=== PATIENT | female | born 1965 | race Caucasian/White ===

== ENCOUNTER → 2017-08-30 | Outpatient (CLI) | payer BC ==
--- NOTE | 2017-09-01 11:58 | MM ---
Reason for exam: screening (asymptomatic). Last mammogram was performed 1 year and 11 months ago. History: Patient is postmenopausal. Family history of breast cancer in grandmother at age 80. Physical Findings: A clinical breast exam by your physician is recommended on an annual basis and results should be correlated with mammographic findings. MG Screening Mammo w CAD Bilateral CC and MLO view(s) were taken. Prior study comparison: September 29, 2015, bilateral MG screening mammo w CAD. July 13, 2013, bilateral digital screening mammo w/CAD. The breast tissue is heterogeneously dense. This may lower the sensitivity of mammography. Far posterior, central calcifications in the left breast are unchanged from 2013. No significant changes when compared with prior studies. ASSESSMENT: Benign, BI-RAD 2 RECOMMENDATION: Routine screening mammogram of both breasts in 1 year.
== END | disposition home or self-care (01) ==
LOC: RADMAMWWP 07:07
PROVIDERS: ATTEND Family Medicine
DX: Z12.31 Encounter for screening mammogram for malignant neoplasm of breast (principal)
CPT/HCPCS: 77067

== ENCOUNTER → 2019-08-15 | Outpatient (CLI) | payer OTHER ==
--- NOTE | 2019-08-16 10:13 | MM ---
Reason for exam: screening (asymptomatic). Last mammogram was performed 2 years ago. History: Patient is postmenopausal. Family history of breast cancer in grandmother at age 80. Physical Findings: A clinical breast exam by your physician is recommended on an annual basis and results should be correlated with mammographic findings. MG Screening Mammo w CAD Bilateral CC and MLO view(s) were taken. Prior study comparison: August 30, 2017, bilateral MG screening mammo w CAD. September 29, 2015, bilateral MG screening mammo w CAD. The breast tissue is heterogeneously dense. This may lower the sensitivity of mammography. There are similar appearing left upper outer quadrant posterior depth calcifications back to 2016. No suspicious abnormality. No significant changes when compared with prior studies. ASSESSMENT: Benign, BI-RAD 2 RECOMMENDATION: Routine screening mammogram of both breasts in 1 year.
== END | disposition home or self-care (01) ==
LOC: RADMAMWWP 07:21
PROVIDERS: ATTEND Family Medicine
DX: Z12.31 Encounter for screening mammogram for malignant neoplasm of breast (principal)
CPT/HCPCS: 77067

== ENCOUNTER → 2020-08-14 | Outpatient (CLI) | payer OTHER ==
--- NOTE | 2020-08-14 15:52 | CONS ---
CONSULTATION DATE OF SERVICE: 08/14/2020 This is a 54-year-old lady who has been evaluated in the sleep center for possible obstructive sleep apnea-hypopnea syndrome. HISTORY OF PRESENT ILLNESS/SLEEP-WAKE EVALUATION: The patient's usual sleep schedule is from 10 p.m. to 6 a.m. on weekdays and on weekends from midnight until 9 or 10 a.m. No problems with falling asleep, although she has a TV in the bedroom. She sleeps on the side position. She snores and wakes up once at night with nocturia. In the morning she wakes up tired. Usually she does not take naps. Turner Sleepiness Scale is 4. Her snoring has become worse over the last several months. PAST MEDICAL HISTORY: Positive for hypothyroidism, menopause presently. History of neck trauma and neck pain. MEDICATIONS: Levothyroxine once a day. PAST SURGICAL HISTORY: None. FAMILY HISTORY: Positive for stroke in her father. REVIEW OF SYSTEMS: Worsening of snoring recently. SOCIAL HISTORY: Negative for smoking or using alcohol. PHYSICAL EXAMINATION: GENERAL: A pleasant lady without distress. VITAL SIGNS: BP 143/88, HR 67, RR 12, height 5 feet 4 inches, weight 159.8, body mass index 27.2, temperature 98.1 oxygen saturation at room air 97%. HEENT: PERRLA, EOMI. Evaluation of oropharynx showed tongue protrudes midline. Moderately low position of soft palate. NECK: Supple. No JVD. Thyroid is not palpable. Neck measures 13-1/2 inches in circumference. LUNGS: Clear to percussion and to auscultation. Good air exchange. No wheezing or rhonchi. HEART: S1, S2 regular. No murmurs, gallops or rubs. ABDOMEN: Soft and nontender. Bowel sounds are present. No organomegaly appreciated. EXTREMITIES: No clubbing or cyanosis. COFFEE WEIGHER: Awake, alert, and oriented X3. Cranial nerves 2 to 7 intact. There is no fasciculation or atrophy. noted. No focal deficits observed. IMPRESSION: 1. Snoring, awakenings from sleep with nocturia, snoring increased recently. The patient feels tired after awakening in the morning. Moderately low position of soft palate; possible obstructive sleep apnea-hypopnea syndrome. 2. Menopause. 3. Hypothyroidism. 4. History of neck trauma with neck pain. PLAN: 1. Home sleep apnea test for checking patient's breathing during sleep. 2. Following plan after reviewing results of sleep study. 3. Sleep hygiene with regular time in bed for at least 7-1/2 to 8 hours. 4. No driving if feeling any sleepiness. 5. Preferable position during sleep is on the side. Thank you very much for referring this patient for consultation. Sincerely, Jerrell Guzmán MD, PhD, FAASM Diplomat of [place] [place] [employer]ighting [employer] Specialist of [facility] [place] MMODL / IJN: [id number] /
== END | disposition home or self-care (01) ==
LOC: SLEEP 14:07
PROVIDERS: ATTEND Internal Medicine
DX: R06.83 Snoring (principal); E03.9 Hypothyroidism, unspecified; Z78.0 Asymptomatic menopausal state; Z87.828 Personal history of other (healed) physical injury and trauma; Z87.39 Personal history of other diseases of the musculoskeletal system and connective tissue; Z99.89 Dependence on other enabling machines and devices; Z79.890 Hormone replacement therapy
CPT/HCPCS: 99211

== ENCOUNTER → 2021-03-26 | Outpatient (CLI) | payer OTHER ==
--- NOTE | 2021-03-30 09:45 | MM ---
Reason for exam: screening (asymptomatic). Last mammogram was performed 1 year and 7 months ago. History: Patient is postmenopausal. Family history of breast cancer in grandmother at age 80. Physical Findings: A clinical breast exam by your physician is recommended on an annual basis and results should be correlated with mammographic findings. MG Screening Mammo w CAD Bilateral CC and MLO view(s) were taken. Prior study comparison: August 15, 2019, bilateral MG screening mammo w CAD. August 30, 2017, bilateral MG screening mammo w CAD. The breast tissue is heterogeneously dense. This may lower the sensitivity of mammography. Posterior outer central grouped and regional calcifications are redemonstrated but appear to be increasing. ASSESSMENT: Incomplete: need additional imaging evaluation, BI-RAD 0 RECOMMENDATION: Special view mammogram of the left breast. (magnification) [facility] will attempt to contact patient to return for supplemental views.
== END | disposition home or self-care (01) ==
LOC: RADMAMWWP 07:37
PROVIDERS: ATTEND Family Medicine
DX: Z12.31 Encounter for screening mammogram for malignant neoplasm of breast (principal); Z78.0 Asymptomatic menopausal state; Z80.3 Family history of malignant neoplasm of breast
CPT/HCPCS: 77067

== ENCOUNTER → 2021-03-31 | Outpatient (CLI) | payer OTHER ==
--- NOTE | 2021-03-31 08:54 | MM ---
Reason for exam: additional evaluation requested from abnormal screening. Last mammogram was performed less than 1 month ago. History: Patient is postmenopausal. Family history of breast cancer in grandmother at age 80. Physical Findings: Nurse did not find any significant physical abnormalities on exam. MG Work Up Mamm w CAD LT CC with magnification, ML with magnification, and LM view(s) were taken of the left breast. Prior study comparison: March 26, 2021, bilateral MG screening mammo w CAD. August 15, 2019, bilateral MG screening mammo w CAD. August 30, 2017, bilateral MG screening mammo w CAD. The breast tissue is heterogeneously dense. This may lower the sensitivity of mammography. Grouped amorphous calcifications posterior lower outer quadrant have increased. Spanning 3.0cm top to bottom on the lateral view. These results were verbally communicated with the patient and result sheet given to the patient on 03/31/21. ASSESSMENT: Suspicious, BI-RAD 4 RECOMMENDATION: Stereotactic core biopsy of the left breast. Called Dr. Gonzalez's office with mammographic findings and has scheduled an appointment for the patient for 04/17/21 at 7:[address] Reyna. Biopsy scheduled for 04/17/21 at 8:00. PRELIMINARY REPORT CALLED AND FAXED TO DR. REYNA ON 03/31/21.
== END | disposition home or self-care (01) ==
LOC: RADMAMWWP 07:27
PROVIDERS: ATTEND Family Medicine
DX: R92.1 Mammographic calcification found on diagnostic imaging of breast (principal); Z78.0 Asymptomatic menopausal state; Z80.3 Family history of malignant neoplasm of breast
CPT/HCPCS: 77065

== ENCOUNTER → 2021-05-08 | Outpatient (CLI) | payer OTHER ==
[2021-05-08 09:24] VITALS: BP 129/80; PULSE 65; RESP 16; TEMP 97.6
--- NOTE | 2021-05-08 09:43 | P.GSHP ---
History of Present Illness H&P Date: 05/08/21 Chief Complaint: abnormal left breast mammogram Lynne is a 55 year old white female seen in consultation for DR. Gonzalez regarding a mammographic abnormality of her Left breast. She had a bilateral screening mammogram in . This revealed grouped in regional calcifications which were increasing in the posterior outer quadrant of the breast[place] [id number] of the left breast. This revealed grouped amorphous calcifications posterior lower outer quadrant which had increased spanning 3 cm from top to bottom on the lateral view. She does not feel any lumps masses or nodules of concern in either breast. She is not complaining of any nipple discharge. She has not had any recent trauma or infection in the breast. She has never had any surgery on either breast. Caffeine: 2 cups coffee/week nicotine; none chocolate: weekly hormones: none BCP: none Family history: maternal grandmother: breast cancer twice in 60's and 80's Hormonal History: menarche; 10 , breast fed: no age at : 28 menopause: 49 hormones: none Surgical history: none Medical History: hypothyroid Social History: nicotine: none alcohol: occasional drugs: none - Constitutional Constitutional: Reports sweats, Denies chills, Denies fever - EENT Eyes: denies blurred vision, denies pain Ears: deny: decreased hearing, tinnitus Ears, nose, mouth and throat: Denies headache, Denies sore throat - Breasts Breasts: bilateral: as per HPI - Cardiovascular Cardiovascular: Denies chest pain, Denies shortness of breath - Respiratory Respiratory: Denies cough, Denies 7 - Gastrointestinal Gastrointestinal: Denies abdominal pain, Denies diarrhea, Denies nausea, Denies vomiting - Genitourinary (Female) Genitourinary: Denies dysuria, Denies hematuria - Menstruation Menstruation: Reports postmenopausal - Musculoskeletal Musculoskeletal: Denies myalgias - Integumentary Integumentary: Denies pruritus, Denies rash - Neurological Neurological: Denies numbness, Denies weakness - Psychiatric Psychiatric: Denies anxiety, Denies depression - Endocrine Comment: hypothyroid Endocrine: Denies fatigue, Denies weight change - Hematologic/Lymphatic Comment: none - Allergic/Immunologic Allergic/Immunologic: Reports as per HPI Past Medical History Past Medical History: Thyroid Disorder Additional Past Medical History / Comment(s): hypothyroid History of Any Multi-Drug Resistant Organisms: None Reported Past Anesthesia/Blood Transfusion Reactions: No Reported Reaction Past Psychological History: No Psychological Hx Reported Smoking Status: Never smoker Past Alcohol Use History: None Reported Medications and Allergies Home Medications Medication Instructions Recorded Confirmed Type Levothyroxine Sodium [Synthroid] 25 mcg PO DAILY 04/07/21 05/08/21 History Allergies Allergy/AdvReac Type Severity Reaction Status Date / Time No Known Allergies Allergy Verified 05/08/21 09:20 Surgical - Exam Vital Signs Temp Pulse Resp BP Pulse Ox 97.6 F 65 16 129/80 98 05/08/21 09:21 05/08/21 09:21 05/08/21 09:21 05/08/21 09:21 05/08/21 09:21 BMI 30.9 - General no distress - Eyes normal ocular movement - ENT normal nares - Neck no masses, trachea midline - Respiratory normal respiratory effort, clear to auscultation - Cardiovascular Rhythm: regular Heart Sounds: normal: S1, S2 - Abdomen Abdomen: soft - Integumentary normal turgor - Neurologic no disoriented, no combative - Musculoskeletal normal gait - Psychiatric oriented to time, oriented to person, oriented to place, speech is normal, memory intact Breast Exam: Bra: 34B inspection: Bilateral grade 2 ptosis Palpation: Right breast: Multi-positional exam fibrocystic changes, dense breast, no dominant masses or nodules of concern Right axilla: No adenopathy of concern Left breast: Multi-positional exam fibrocystic changes, dense breast, slightly denser tissue relative to the right breast in the outer central portion Left axilla: No adenopathy of concern Results Mammogram results reviewed with Dr. Fountain/microcalcifications of concern left breast posterior outer central area Assessment and Plan Assessment: Impression: 1. Mammographic abnormality left breast 2. Dense fibrocystic breast disease slightly denser on the left than the right lateral aspect 3. Family history of breast cancer 4. Hypothyroidism Plan: 1. Stereotactic core biopsy area of concern left breast 2. Follow-up after stereotactic core biopsy Risks and benefits of stereotactic core biopsy discussed with the patient. Risks include but are not limited to bleeding, infection, reaction to the anesthetic. The area of concern spans approximately 3 cm. The patient understands that if the findings were to be discordant it may warrant interventional biopsy. Additionally if anything of concern was noted on the biopsy surgery would be recommended. Alternatives such as watchful waiting with open biopsy initially were discussed but not recommended. CC: Dr. Gonzalez
== END ==
LOC: WWCWWP 09:00
PROVIDERS: ATTEND Surgery
DX: N60.12 Diffuse cystic mastopathy of left breast (principal); R92.8 Other abnormal and inconclusive findings on diagnostic imaging of breast; E03.9 Hypothyroidism, unspecified; Z80.3 Family history of malignant neoplasm of breast; Z79.899 Other long term (current) drug therapy

== ENCOUNTER → 2021-05-21 | Day surgery (SDC) | payer OTHER ==
[2021-05-21 07:18] VITALS: RESP 16; TEMP 98
[2021-05-21 08:33] VITALS: BP 127/77; PULSE 60
--- NOTE | 2021-05-21 08:40 | P.PCN ---
Date of Procedure: 05/21/21 Preoperative Diagnosis: Abnormal left breast mammogram Postoperative Diagnosis: Same Procedure(s) Performed: Stereotactic core biopsy left breast Anesthesia: local Surgeon: Teagan Reyna Pathology: other (Breast tissue with microcalcifications of concern included) Condition: stable Disposition: same day Indications for Procedure: Microcalcifications of concern left breast Operative Findings: Breast tissue with microcalcifications of concern noted in specimen Description of Procedure: Lynne is a 55-year-old white female who was noted to have microcalcifications of concern on the left breast mammogram. The patient was recommended to undergo a stereotactic core biopsy. Risks and benefits of the procedure were discussed with the patient. She understood and wished to proceed. Alternatives such as watchful waiting (biopsy were discussed but not recommended. The patient was taken to the stereotactic core biopsy room. A CC from below approach was utilized. A pipe straightener film was obtained. The area of concern was identified. The lesion was targeted. The breast was prepped using Betadine. 20 mL of 1% lidocaine were used to anesthetize the area of concern. A 9-gauge vacuum-assisted core rotating biopsy needle was driven to the correct coordinates. The needle was fired. A postoperative film was obtained. The needle was noted to be in the correct location. 11 specimens were obtained. The area was well irrigated. Hemostasis was attained. The specimen was radiographed and calcifications of concern were identified. A secure vitaly Top- dress marker was placed. The marker was noted to be in the correct location. The patient tolerated the procedure without difficulty. The specimen was felt to be marketing development representative of the area of concern.
--- NOTE | 2021-05-21 08:55 | MM ---
Description of Procedure: Lynne is a 55-year-old white female who was noted to have microcalcifications of concern on the left breast mammogram. The patient was recommended to undergo a stereotactic core biopsy. Risks and benefits of the procedure were discussed with the patient. She understood and wished to proceed. Alternatives such as watchful waiting (biopsy were discussed but not recommended. The patient was taken to the stereotactic core biopsy room. A CC from below approach was utilized. A ski maker wood film was obtained. The area of concern was identified. The lesion was targeted. The breast was prepped using Betadine. 20 mL of 1% lidocaine were used to anesthetize the area of concern. A 9-gauge vacuum-assisted core rotating biopsy needle was driven to the correct coordinates. The needle was fired. A postoperative film was obtained. The needle was noted to be in the correct location. 11 specimens were obtained. The area was well irrigated. Hemostasis was attained. The specimen was radiographed and calcifications of concern were identified. A secure vitaly Top- x ray developer was placed. The marker was noted to be in the correct location. The patient tolerated the procedure without difficulty. The specimen was felt to be medical sales representative of the area of concern. [facility]
== END ==
LOC: RADMAMWWP 07:09
PROVIDERS: ATTEND Surgery
DX: R92.8 Other abnormal and inconclusive findings on diagnostic imaging of breast (principal); N62 Hypertrophy of breast; N60.82 Other benign mammary dysplasias of left breast
CPT/HCPCS: 88305; 88342; 19081; A4648; J2001

== ENCOUNTER → 2021-05-28 | Outpatient (CLI) | payer OTHER ==
[2021-05-28 09:15] VITALS: BP 127/84; PULSE 83; RESP 16; TEMP 98
--- NOTE | 2021-05-28 09:30 | P.PN ---
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 Pathology revealed atypical duct hyperplasia/flat epithelial atypia with focal atypical apocrine metaplasia. The patient has a positive family history with a maternal grandmother having had breast cancer. We have discussed surgical options such as needle localization of the borders of the area as it spans approximately 3 cm and excision. The patient's bra size is 34B. I have discussed with her that she will have some change in the size of her breast secondary to the size of the area which requires excision. We discussed the possibility of a simple mastectomy with reconstruction and at this time we are going to avoid that. Objective - Vital Signs Vital signs: Vital Signs Temp 98.0 F 05/28/21 09:07 Pulse 83 05/28/21 09:07 Resp 16 05/28/21 09:07 BP 127/84 05/28/21 09:07 Pulse Ox 100 05/28/21 09:07 Intake & Output 05/27/21 05/28/21 05/28/21 18:59 06:59 18:59 Weight 72.575 kg - Constitutional General appearance: Present: cooperative - EENT Eyes: Present: EOMI ENT: Present: hearing grossly normal - Neck Neck: Present: normal ROM - Respiratory Respiratory: bilateral: CTA - Cardiovascular Rhythm: regular Heart sounds: normal: S1, S2 - Integumentary Integumentary: Present: normal turgor - Musculoskeletal Musculoskeletal: Present: gait normal - Psychiatric Psychiatric: Present: A&O x's 3, appropriate affect, intact judgment & insight - Additional findings Additional findings: Breast examination: Bra: 36B Inspection: Biopsy site left breast clean and dry Palpation: Right breast colon from prior exam multiple positional exam no dominant masses or nodules of concern. Axilla: No adenopathy of concern Left breast colon from prior exam multiple positional exam slightly denser tissue relative to the right breast in the outer central portion Left axilla: No adenopathy of concern Assessment and Plan Assessment: Impression: 1. Atypical ductal hyperplasia/flat epithelial atypia left breast are detected core biopsy 2. Abnormal left breast mammogram Plan: 1. Needle localization with 2 needles bracketing the area of concern and lumpectomy in the operating room 2. Onco-plastic tissue transfer 3. Possible donut mastopexy incision Risks and benefits of the procedure been discussed with the patient. Risks include but are not limited to bleeding, infection, reaction to the anesthetic. She understands if the margins were to be positive for precancer or cancer is possible we would have to go back and take more tissue. CC: Dr. Inez Gonzalez
== END ==
LOC: WWCWWP 08:57
PROVIDERS: ATTEND Surgery
DX: N60.92 Unspecified benign mammary dysplasia of left breast (principal)

== ENCOUNTER 2021-06-23 07:41 | Day surgery (SDC) | payer OTHER ==
[2021-06-18 15:47] VITALS: BMI 29.2
[~2021-06-23 07:41] MED LIST: ALPRAZolam 0.5 MG TAB PO PRN; DEXAMETHASONE SOD PHOSPHATE 4 MG/ML 1 ML VIAL IV ONE; HEPARIN SODIUM,PORCINE/PF 5,000 UNIT/0.5 ML SYRINGE SQ PRN; HYDROmorphone 0.5 MG/0.5 ML SYRINGE IVP PRN; LACTATED RINGERS 1,000 ML IV SCH; ONDANSETRON 4 MG/2 ML VIAL IVP ONE; Pre Op ABX Message 1 EACH MISC MISCELLANE ONE
[2021-06-23] MEDS ORDERED: LIDOCAINE 1% (10MG/ML) FOR IV START INTRADERMA ONE (08:41)
[2021-06-23] MEDS ORDERED: LIDOCAINE 1% INJ 10MG/ML (20 ML MDV) SQ ONE (10:00)
[2021-06-23] MEDS ORDERED: LIDOCAINE 1%-EPI 1:100,000 20 ML VIAL SQ ONE (10:00)
[2021-06-23] MEDS ORDERED: PROPOFOL 10 MG/ML 20 ML VIAL IV ONE (13:18)
[2021-06-23] MEDS ORDERED: PHENYLEPHRINE-0.9% NACL SYG 1,000 MCG/10 ML SYRINGE ONE (13:18)
[2021-06-23] MEDS ORDERED: MIDAZOLAM 2 MG/2 ML VIAL ONE (13:18)
[2021-06-23] MEDS ORDERED: .fentaNYL (PF) 50 MCG/ML 2 ML AMP ONE (13:18)
[2021-06-23] MEDS ORDERED: SUCCINYLCHOLINE CHLORIDE 100 MG/5 ML SYR IV ONE (13:18)
[2021-06-23] MEDS ORDERED: GLYCOPYRROLATE 0.2 MG/ML 2 ML VIAL ONE (13:18)
[2021-06-23] MEDS ORDERED: LIDOCAINE 1% INJ 10MG/ML (20 ML MDV) ONE (13:18)
[2021-06-23] MEDS ORDERED: ePHEDrine 50 MG/ML 1 ML AMP ONE (13:18)
[2021-06-23] MEDS ORDERED: LIDOCAINE 0.5% (PF) 5 MG/ML (50 ML SDV) SQ ONE ×2 (13:46→14:20)
[2021-06-23] MEDS ORDERED: LACTATED RINGERS 1,000 ML IV ONE (14:21)
--- NOTE | 2021-06-23 14:27 | P.OP ---
Date of Procedure: 06/23/21 Preoperative Diagnosis: Left breast atypical ductal hyperplasia on core biopsy Postoperative Diagnosis: Same Procedure(s) Performed: needle localization excisional lumpectomy, oncoplastic tissue transfer 20 cm Anesthesia: CHRISTAL Surgeon: Teagan Reyna Estimated Blood Loss (ml): 8 IV fluids (ml): 700 Pathology: other (breast tissue) Condition: stable Disposition: same day Indications for Procedure: Atypical ductal hyperplasia on stereotactic core biopsy of the left breast Operative Findings: Dense breast tissue Description of Procedure: The patient is a 55-year-old white female who was noted on stereotactic core biopsy to have atypical ductal hyperplasia. She was recommended to undergo needle localization and excisional lumpectomy. Following needle localization of the area of concern she was brought to the operative suite. Following induction of anesthesia the left breast was prepped and draped in a sterile fashion. An incision was made and carried down to the needle. Surrounding tissue was excised. The excision was carried down to the pectoralis muscle. The specimen was removed and painted for orientation. X-ray of the specimen revealed the area of concern had been removed. After we were assured that hemostasis was attained titanium clips were placed. The superior and inferior pillars were mobilized. Superior pillar was 5 x 2 cm for 10 cm, inferior pillar was 5 x 2 cm for 10 cm. A total of 20 cm were mobilized. The deep tissues were brought together using 3-0 Vicryl suture. Subcutaneous tissue was closed using a 3-0 Vicryl suture. The skin was closed using 4-0 Monocryl. Steri-Strips were applied. The patient tolerated the procedure in stable condition. All instrument and sponge counts were correct at the end of the case.
--- NOTE | 2021-06-23 14:29 | P.DS ---
Providers Attending physician: Teagan Reyna Primary care physician: Dangelo Gonzalez Plan - Discharge Summary Discharge Rx Participant: No New Discharge Prescriptions: No Action Levothyroxine Sodium [Synthroid] 25 mcg PO DAILY Discharge Medication List Levothyroxine Sodium [Synthroid] 25 mcg PO DAILY 04/07/21 [History] Follow up Appointment(s)/Referral(s): Teagan Reyna MD [STAFF PHYSICIAN] - 07/02/21 12:00 pm Activity/Diet/Wound Care/Special Instructions: do not drive for 24 hours after discharge or if taking narcotic pain medicine may shower afer 48 hours wear bra at all times Discharge Disposition: HOME SELF-CARE
[2021-06-23 14:51] VITALS: TEMP 97.3
[2021-06-23] MEDS ORDERED: KETOROLAC 15 MG/ML 1 ML VIAL IVP ONE (14:51)
[2021-06-23] MEDS ORDERED: KETOROLAC 30 MG/ML 1 ML VIAL ONE (14:53)
--- NOTE | 2021-06-23 15:03 | MM ---
EXAMINATION TYPE: MG pre op needle loc LT, MG surgical specimen LT DATE OF EXAM: 06/23/2021 COMPARISON: Prior mammogram May 21, 2021 and older studies. CLINICAL HISTORY: Abnormal stereotactic guided core biopsy. ADH/FEA on recent stereotactic biopsy TECHNIQUE: Needle localization with wire placement and surgical excision of area of concern in the left breast. FINDINGS: The procedure of needle localization with wire placement and than surgical excision was explained to the patient. Benefits, alternatives, and risks were discussed. An informed consent was then obtained. The shortest pathway for procedure was chosen. Shortest pathway was lateral approach. The overlying skin was prepped and draped in usual sterile fashion. Lidocaine is used as anesthetic into the skin and subcutaneous tissue. Lidocaine with epinephrine is used if anesthetic into the deeper tissue up to the level of area of concern. A 7 cm needle was used. It was placed via a lateral approach under mammographic guidance. Subsequent 90 degrees mammogram show the needle to be in satisfactory position relative to the targeted area. At this point, wire was placed and the needle was withdrawn. The wire was fixed to patient's skin. Images were marked for surgeon. The patient tolerated the procedure well without any immediate complication. The patient was kept in the radiology department for short stay after the procedure and then taken to surgery for surgical excision. Targeted biopsy clip and wire are identified in specimen mammogram. The patient was kept in hospital for short stay after the procedure and then discharged home in stable condition. IMPRESSION: Successful, uncomplicated needle localization with wire placement and surgical excision of targeted biopsy clip and residual calcifications in the left breast, full pathology results to follow. Pathology Results: Benign LEFT BREAST, LUMPECTOMY: Fibrocystic change with apocrine metaplasia, columnar cell change, focal usual ductal hyperplasia, fibrotic and inflamed biopsy site change and scattered areas of microcalcification (see note). Current specimen negative for diagnostic in situ or invasive carcinoma. Recommendation Follow up mammogram of the left breast in 6 months. [facility]
[2021-06-23 15:17] VITALS: RESP 18
[2021-06-23 16:17] VITALS: BP 121/81; PULSE 91
== END 2021-06-23 16:31 | disposition home or self-care (01) ==
LOC: OR 07:41
PROVIDERS: ATTEND Surgery
DX: N60.12 Diffuse cystic mastopathy of left breast (principal); N62 Hypertrophy of breast; Z80.3 Family history of malignant neoplasm of breast; Z79.899 Other long term (current) drug therapy
CPT/HCPCS: 19301; 14001; 88307; 76098; 19281; C1819; J2250; J1100; J2405; J2001 ×2; J3010; J1885; J2370; J0330; J2704; J1644

== ENCOUNTER → 2021-07-02 | Outpatient (CLI) | payer OTHER ==
[2021-07-02 12:08] VITALS: BP 177/85; PULSE 77; RESP 16; TEMP 98.1
--- NOTE | 2021-07-02 12:19 | P.PN ---
Progress Note - Text Progress Note Date: 07/02/21 Lynne is a 55 year old white female status post needle localization and left breast biopsy on 06-23-21. Pathology was benign. She tolerated the procedure without difficulty. Pathology revealed fibrocystic changes with apocrine metaplasia, columnar cell change, focal usual ductal hyperplasia, fibrotic and inflamed biopsy site change and scattered areas of microcalcification. This was felt to be successful needle localization with surgical excision of the targeted biopsy clip. Physical examination: Lungs: Clear Heart: Regular rate and rhythm Incision: Clean and dry Impression: Benign left breast biopsy Plan: Repeat left breast mammogram in 6 months with physician exam at that time Cc: Dr. Gonzalez
== END ==
LOC: WWCWWP 11:58
PROVIDERS: ATTEND Surgery
DX: R92.8 Other abnormal and inconclusive findings on diagnostic imaging of breast (principal); N60.92 Unspecified benign mammary dysplasia of left breast

== ENCOUNTER → 2021-12-23 | Outpatient (CLI) | payer OTHER ==
--- NOTE | 2021-12-23 11:17 | MM ---
Reason for Exam: Follow-up at short interval from prior study. Last screening mammogram was performed 9 month(s) ago. Patient History: Menarche at age 10. First Full-Term at age 28. Postmenopausal. 06/23/2021, Benign Core Biopsy on the left side. 05/21/2021, High risk Core Biopsy on the left side. Maternal grandmother had breast cancer, age 80. Risk Values: Amie 5 year model risk: 2.4%. NCI Lifetime model risk: 13.9%. Prior Study Comparison: 08/15/2019 Bilateral Screening Mammogram, [facility]. 03/26/2021 Bilateral Screening Mammogram, [facility]. 03/31/2021 Left Diagnostic Mammogram, [facility]. Tissue Density: Left: The breast tissue is heterogeneously dense. This may lower the sensitivity of mammography. Findings: Analyzed By CAD. Postoperative changes of left-sided lumpectomy. Surgical clips noted. Postoperative distortion. No evidence for mass or suspicious cluster of microcalcifications. Overall Assessment: Benign, BI-RAD 2 Management: Screening Mammogram of both breasts in 6 months. A clinical breast exam by your physician is recommended on an annual basis and results should be correlated with mammographic findings. This exam should not preclude additional follow-up of suspicious palpable abnormalities. Results were given to the patient verbally at the time of exam. Electronically signed and approved by: Reji Fountain M.D. Radiologis
== END | disposition home or self-care (01) ==
LOC: RADMAMWWP 10:41
PROVIDERS: ATTEND Surgery
DX: R92.8 Other abnormal and inconclusive findings on diagnostic imaging of breast (principal); Z80.3 Family history of malignant neoplasm of breast; Z78.0 Asymptomatic menopausal state
CPT/HCPCS: 77065

== ENCOUNTER → 2022-01-28 | Outpatient (CLI) | payer OTHER ==
[2022-01-28 10:47] LABS: Basophils # (A) 0.05 X 10*3/uL (0.00-0.10); Eosinophils # (A) 0.11 X 10*3/uL (0.04-0.35); Eosinophils % (A) 2.3 %; HCT 42.7 % (37.2-46.3); HGB 14.1 g/dL (12.0-15.0); Immature Grans, Automated 0.2 %; Lymphocytes # (A) 1.29 X 10*3/uL (0.90-5.00); Lymphocytes % (A) 26.9 %; MCH 29.2 pg (27.0-32.0); MCV 88.4 fL (80.0-97.0); Mean Platelet Volume 9.6 fL (9.5-12.2); Monocytes % (A) 8.3 %; NRBC Per 100 WBC 0 /100 WBCS (0.0-0.0); Neutrophils # (A) 2.94 X 10*3/uL (1.80-7.70); Neutrophils % (A) 61.3 %; Platelet Count 221 X 10*3/uL (140-440); RBC 4.83 X 10*6/uL (4.10-5.20); RDW 12.4 % (11.5-14.5)
[2022-01-28 11:05] LABS: ALT 15 U/L (8-44); AST 21 U/L (13-35); Albumin 4.7 g/dL (3.8-4.9); Alkaline Phosphatase 99 U/L (41-126); BUN/Creat Ratio 14.12 Ratio (12.00-20.00); Blood Urea Nitrogen 12.5 mg/dL (9.0-27.0); Calcium 9.9 mg/dL (8.7-10.3); Carbon Dioxide 28.7 mmol/L (20.0-27.5); Chloride 102 mmol/L (96-109); Chol/HDL Ratio 4.05 Ratio; Globulin 2.5 g/dL (1.6-3.3); Glucose 95 mg/dL (70-110); LDL Cholesterol,Calculated 154.4 mg/dL (0.0-131.0); Non-African American GFR(CKD) 72.4 (60.0-200.0); Potassium 5.1 mmol/L (3.5-5.5); Sodium 140 mmol/L (135-145); Total Protein 7.1 g/dL (6.2-8.2)
== END | disposition home or self-care (01) ==
LOC: LABWHC1 07:12
PROVIDERS: ATTEND Family Medicine
DX: E03.8 Other specified hypothyroidism (principal); E78.2 Mixed hyperlipidemia
CPT/HCPCS: 36415; 80053; 80061; 84439; 84443; 84481; 85025

== ENCOUNTER → 2024-01-12 | Outpatient (CLI) | payer BC ==
[2024-01-12 10:36] LABS: Basophils # (A) 0.06 X 10*3/uL (0.00-0.10); Basophils % (A) 1.2 %; Eosinophils # (A) 0.13 X 10*3/uL (0.04-0.35); Eosinophils % (A) 2.7 %; HCT 42.5 % (37.2-46.3); HGB 13.6 g/dL (12.0-15.0); Lymphocytes % (A) 26.8 %; MCH 29.2 pg (27.0-32.0); MCV 91.4 FL (80.0-97.0); Mean Platelet Volume 9.9 FL (9.5-12.2); Monocytes # (A) 0.34 X 10*3/uL (0.20-1.00); NRBC Per 100 WBC 0 X 10*3/uL (0.00-0.01); Neutrophils # (A) 3.01 X 10*3/uL (1.80-7.70); Neutrophils % (A) 62.1 %; Platelet Count 225 X 10*3/uL (140-440); RBC 4.65 X 10*6/uL (4.10-5.20); RDW 12.5 % (11.5-14.5); WBC 4.85 X 10*3/uL (4.50-10.00)
[2024-01-12 15:22] LABS: ALT 17 U/L (8-44); AST 21 U/L (13-35); Albumin 4.5 g/dL (3.8-4.9); Albumin/Globulin Ratio 1.88 Ratio (1.60-3.17); Alkaline Phosphatase 99 U/L (41-126); Blood Urea Nitrogen 14.4 mg/dL (9.0-27.0); Calcium 9.4 mg/dL (8.7-10.3); Carbon Dioxide 27.8 mmol/L (21.6-31.8); Chloride 105 mmol/L (96-109); Chol/HDL Ratio 3.99 Ratio; Globulin 2.4 g/dL (1.6-3.3); Glucose 91 mg/dL (70-110); Potassium 4.6 mmol/L (3.5-5.5); Sodium 142 mmol/L (135-145); T4, Free (Free Thyroxine) 1.12 ng/dL (0.80-1.80); Total Bilirubin 0.2 mg/dL (0.3-1.2); Total Protein 6.9 g/dL (6.2-8.2); VLDL Calculation 13.92 mg/dL (5.00-40.00)
== END | disposition home or self-care (01) ==
LOC: LABWHC1 07:06
PROVIDERS: ATTEND Family Medicine
DX: Z00.00 Encounter for general adult medical examination without abnormal findings (principal); E03.8 Other specified hypothyroidism
CPT/HCPCS: 36415; 80053; 80061; 84439; 84443; 84481; 85025

== ENCOUNTER → 2024-01-13 | Outpatient (CLI) | payer BC ==
--- NOTE | 2024-01-16 18:26 | MM ---
Reason for Exam: Screening (asymptomatic). Last mammogram was performed 1 year(s) and 4 month(s) ago. Patient History: Menarche at age 10. First Full-Term at age 28. Postmenopausal. 06/23/2021, Benign Core Biopsy on the left side. 05/21/2021, High risk Core Biopsy on the left side. Maternal grandmother had breast cancer, age 80. Risk Values: Amie 5 year model risk: 2.5%. NCI Lifetime model risk: 13.3%. Prior Study Comparison: 03/31/2021 Left Diagnostic Mammogram, [facility]. 12/23/2021 Left MG diagnostic mammo LT w CAD, [facility]. 09/08/2022 Bilateral MG screening mammo w CAD, [facility]. Tissue Density: The breasts are heterogeneously dense, which may obscure small masses. Findings: Analyzed By CAD. Postexcisional changes on the left. There is no suspicious group of microcalcifications or new suspicious mass in either breast. Overall Assessment: Benign, BI-RAD 2 Management: Screening Mammogram of both breasts in 1 year. . Patient should continue monthly self-breast exams. A clinical breast exam by your physician is recommended on an annual basis. This exam should not preclude additional follow-up of suspicious palpable abnormalities. Note on Amie scores and lifetime risk: 1. A Amie score greater than 3% is considered moderate risk. If this is the case, consider specialist referral to assess eligibility for a risk reducing agent. 2. If overall lifetime risk for the development of breast cancer is 20% or higher, the patient may qualify for future screening with alternating mammogram and breast MRI. Electronically signed and approved by: Vito Whitesdie M.D. Radiologist
== END | disposition home or self-care (01) ==
LOC: RADMAMWWP 07:03
PROVIDERS: ATTEND Family Medicine
DX: Z12.31 Encounter for screening mammogram for malignant neoplasm of breast (principal); Z78.0 Asymptomatic menopausal state; Z80.3 Family history of malignant neoplasm of breast
CPT/HCPCS: 77067